=== PATIENT | female | born 1955 | race Caucasian/White ===

== ENCOUNTER → 2017-03-09 | Outpatient (CLI) | payer OTHER, SELFPAY ==
[~2017-03-09] MED LIST: BUSPAR30 MG PO; CYMBALTA30 MG PO; IBUPROFEN 800800 M1 PO; KLOR-CON 1010 MEQ PO; LAMICTAL2 MG; LIMBITROL DS T1 EACH PO; LOVAZA1000 MG PO; LUNESTA1 MG; NEXIUM 40 MG CA40 M1 PO; PREDNISONE 20 M20 M1 PO; PROVENTIL HFA6.7 G1 INH; REQUIP 0.25 M0.25 MG PO; SYNTHROID200 MCG PO; TRAMADOL 50 MG50 MG PO; VALIUM5 MG PO; XANAX 0.25 MG0.25 MG; ZPAK PO
== END ==
LOC: RAD 07:54
DX: Z12.31 Encounter for screening mammogram for malignant neoplasm of breast (principal)

== ENCOUNTER 2021-08-26 18:09 | Emergency (ER) | payer OTHER ==
[~2021-08-26 18:09] MED LIST changes: +ANBESOL12 ML TOP; +CIPRO500 MG PO; +CORTISPORIN OTI10 M2 OTIC
[2021-08-26 18:33] VITALS: BP 157/74
--- NOTE | 2021-08-27 07:17 | EKG ---
[address] [place] [address] ELECTROCARDIOGRAM REPORT Name: VENKATESH SRIVASTAVA Room #: [facility] [id number] Admission: 08/26/21 Attend Phys: Discharge: 08/26/21 Date of : 59 Report #: [id number] [facility] ED Test Date: 2021-08-26 Test Time: 18:39:02 Pat Name: VENKATESH SRIVASTAVA Department: Room: Gender: F [employer] Dancer: DIANELYS : 1955 Requested By: Junior Cha Order Number: [id number] MD: Shai Weiss Measurements Intervals [place] Rate: 65 P: 47 KS: 153 QRS: -59 QRSD: 108 T: 62 QT: 430 QTc: 448 Interpretive Statements Sinus rhythm LAD, consider left anterior fascicular block Compared to ECG 11/05/2015 13:52:49 No significant changes Electronically Signed On 08-27-2021 7:17:35 LAN MANAGER by Shai Weiss [email or web address] <ELECTRONICALLY SIGNED> By: Shai Weiss MD, [facility] 08/27/21 0717 38 38 Shai Weiss MD, FACC /EPI
== END 2021-08-26 18:59 | disposition left against medical advice (07) ==
LOC: ER 18:09
DX: F41.9 Anxiety disorder, unspecified (principal); I10 Essential (primary) hypertension; K21.9 Gastro-esophageal reflux disease without esophagitis; E03.9 Hypothyroidism, unspecified; F32.9 Major depressive disorder, single episode, unspecified; E78.00 Pure hypercholesterolemia, unspecified; Z53.21 Procedure and treatment not carried out due to patient leaving prior to being seen by health care provider; Z88.6 Allergy status to analgesic agent; Z88.8 Allergy status to other drugs, medicaments and biological substances